=== PATIENT | female | born 1960 | race Caucasian/White ===

== ENCOUNTER 2021-01-05 09:02 | Day surgery (SDC) | payer OTHER ==
[~2021-01-05] VITALS: Ht 160 cm; Wt 47.9 kg
[2021-01-05] MEDS ORDERED: DEXAMETHASONE 4 MG/ML, 1ML ONE (09:18)
[2021-01-05] MEDS ORDERED: PROPOFOL 10 MG/ML, 20ML ONE (09:18)
[2021-01-05] MEDS ORDERED: KETOROLAC 30 MG/1 ML ONE (09:18)
[2021-01-05] MEDS ORDERED: ONDANSETRON 2MG/ML, 2ML ONE (09:18)
[2021-01-05] MEDS ORDERED: AMLO-210 PO (09:46)
[2021-01-05] MEDS ORDERED: PROG100C10 PO (09:46)
[2021-01-05] MEDS ORDERED: ESTR1TAB15 PO (09:46)
[2021-01-05] MEDS ORDERED: BUDE10.22 INH (09:46)
[2021-01-05] MEDS ORDERED: ALBU8.5H8 INH (09:46)
[2021-01-05] MEDS ORDERED: LACTATED RINGERS 1,000 ML IV SCH (10:00)
[2021-01-05] MEDS ORDERED: PLEASE ENTER HEIGHT AND WEIGHT MC SCH (10:00)
[2021-01-05] MEDS ORDERED: CHLORHEXIDINE 15 ML UDC PO ONE (10:00)
[2021-01-05] MEDS ORDERED: CHLORHEXIDINE 15 ML UDC ONE (10:03)
[2021-01-05 10:05] VITALS: BP 162/95
[2021-01-05 10:19] LABS: ALANINE AMINOTRANSFERASE 31 U/L (12-78); ALBUMIN 4.2 g/dL (3.4-5.0); ANION GAP 4 mmol/L (5-15); CALCIUM 9.4 mg/dL (8.5-10.1); CHLORIDE 108 mmol/L (98-107); CREATININE 0.87 mg/dL (0.55-1.02)
[2021-01-05 10:22] LABS: ALKALINE PHOSPHATASE 55 U/L (45-117); BILIRUBIN,TOTAL 0.5 mg/dL (0.2-1.0); TOTAL PROTEIN 7.7 g/dL (6.4-8.2)
[2021-01-05] MEDS ORDERED: MIDAZOLAM 1 MG/ML, 2ML ONE (10:49)
[2021-01-05] MEDS ORDERED: SILVER NITRATE STICK TP ONE (10:52)
[2021-01-05] MEDS ORDERED: EPINEPHRINE 1 MG/ML, 1ML ONE (10:52)
[2021-01-05] MEDS ORDERED: BUPIVACAINE/PF 0.25% ONE (10:52)
[2021-01-05] MEDS ORDERED: MEPERIDINE/PF 25MG/0.5ML IVPush PRN (11:00)
[2021-01-05] MEDS ORDERED: EPHEDRINE 50 MG/ML, 1ML IVPush PRN (11:00)
[2021-01-05] MEDS ORDERED: PROMETHAZINE 25 MG/ML, 1ML IVPush PRN (11:00)
[2021-01-05] MEDS ORDERED: LABETALOL 5MG/ML, 20ML IV PRN (11:00)
[2021-01-05] MEDS ORDERED: HYDROmorphone 1 MG/ML, 1ML INJ IVPush PRN (11:00)
[2021-01-05] MEDS ORDERED: METHOCARBAMOL 1,000 MG in DEXTROSE 5% 100 ML IV PRN (11:00)
[2021-01-05] MEDS ORDERED: hydrALAzine 20 MG/ML, 1ML IV PRN (11:00)
[2021-01-05] MEDS ORDERED: ACETAMINOPHEN 325 MG TABLET PO PRN (11:00)
[2021-01-05] MEDS ORDERED: OXYcodone 5 MG/5 ML ORAL.SOL UDC PO PRN (11:00)
[2021-01-05] MEDS ORDERED: LORazepam 2 MG/ML, 1ML IVPush PRN (11:00)
[2021-01-05] MEDS ORDERED: EPHEDRINE 50 MG/ML, 1ML IM PRN (11:00)
[2021-01-05] MEDS ORDERED: HALOPERIDOL 5 MG/ML IV PRN (11:00)
[2021-01-05] MEDS ORDERED: ONDANSETRON 2MG/ML, 2ML IVPush PRN (11:00)
[2021-01-05] MEDS ORDERED: FENTANYL PF 100 MCG/2ML IV PRN (11:00)
[2021-01-05 11:17] LABS: BASOPHILS % (AUTO) 1 % (0-1); EOSINOPHILS % (AUTO) 3 % (1-7); LYMPHOCYTES % (AUTO) 32 % (22-44); MEAN CORPUSCULAR HEMOGLOBIN 32.2 pg (27.0-34.8); MEAN CORPUSCULAR HGB CONC 33.3 g/dL (32.4-35.8); MEAN PLATELET VOLUME 8.6 fL (7.4-10.4); MONOCYTES % (AUTO) 7 % (2-9); NEUTROPHILS % (AUTO) 56 % (42-75); PLATELET COUNT 289 x10^3/uL (130-400); RED BLOOD COUNT 4.66 x10^6/uL (3.82-5.3); RED CELL DISTRIBUTION WIDTH 13.9 % (9.6-15.2)
[2021-01-05] MEDS ORDERED: FENTANYL PF 250 MCG/5ML ONE (12:12)
[2021-01-05] MEDS ORDERED: ACETAMINOPHEN 650 MG/20.3 ML UDC ONE (12:44)
== END 2021-01-05 14:40 | disposition home or self-care (01) ==
LOC: OUT 09:02
PROVIDERS: ATTEND Obstetrics & Gynecology
DX: N95.0 Postmenopausal bleeding (principal); N84.0 Polyp of corpus uteri; I10 Essential (primary) hypertension; I73.00 Raynaud's syndrome without gangrene; J45.909 Unspecified asthma, uncomplicated; Z88.0 Allergy status to penicillin; Z20.822 Contact with and (suspected) exposure to COVID-19; Z79.899 Other long term (current) drug therapy; Z72.89 Other problems related to lifestyle
CPT/HCPCS: 36415; 58558; 80053; 85025; 87635; 88305; J0171; J2250; J3010; J7120; J1100; J1885; J2405; J2704